=== PATIENT | female | born 1945 | race Caucasian/White ===

== ENCOUNTER → 2017-02-22 10:12 | Outpatient (CLI) | payer MEDICARE ==
[2017-02-22 10:57] LABS: BASOPHILS 0.2 % (0-2); HEMATOCRIT 43.2 % (36.0-48.0); HEMOGLOBIN 14.1 g/dL (12-16); LYMPHOCYTES 40.3 % (15-50); MCH 31.5 pg (26.0-34.0); MCHC 32.6 g/dL (31.0-37.0); MCV 96.6 fL (80.0-100.0); MEAN PLATELET VOLUME 10.1 fL (7.4-10.4); MONOCYTES 9.4 % (2-11); NEUTROPHILS 49.1 % (40-80); PLATELET COUNT 217 10x3/uL (130-400); RBC 4.47 10x6/uL (4.00-5.40); WBC 4.8 10x3/uL (4.8-10.8)
[2017-02-22 11:37] LABS: ALBUMIN 4.2 g/dL (3.4-5.0); ALKALINE PHOSPHATASE 57 U/L (46-116); ALT (SGPT) 20 U/L (10-68); BILIRUBIN - TOTAL 0.81 mg/dL (0.2-1.3); CALC OSMOLALITY 283 mosm/kg (275-300); CALCIUM 9.6 mg/dL (8.5-10.1); CARBON DIOXIDE 32.3 mmol/L (21.0-32.0); CHLORIDE - SERUM 104 mmol/L (98-107); CHOL - HDL RATIO 2.8 ratio (2.3-4.1); CHOLESTEROL, TOTAL 203 mg/dL (0-200); CREATININE - SERUM 0.8 mg/dL (0.6-1.3); GLUCOSE 96 mg/dL (74-106); HDL CHOLESTEROL 72 mg/dL (32-96); LDL CHOLESTEROL 120 mg/dL (0-100); LDL-HDL RATIO 1.7 ratio (1.5-3.5); POTASSIUM - SERUM 3.9 mmol/L (3.5-5.1); PROTEIN - SERUM 7.3 g/dL (6.4-8.2); SODIUM 143 mmol/L (136-145); THYROID STIMULATING HORMONE 2.03 uIU/mL (0.36-3.74); TRIGLYCERIDE 59 mg/dL (30-200); UREA NITROGEN 11 mg/dL (7-18); eGFR NON AFRICAN AMERICAN 75 mL/min (90-120)
== END | disposition home or self-care (01) ==
LOC: D.MRI 10:12
PROVIDERS: Family Medicine
DX: R41.82 Altered mental status, unspecified (principal); Z00.01 Encounter for general adult medical examination with abnormal findings; K58.9 Irritable bowel syndrome, unspecified; R53.83 Other fatigue; R79.9 Abnormal finding of blood chemistry, unspecified

== ENCOUNTER 2017-05-15 21:47 | Emergency (ER) | payer MEDICARE | END 2017-05-15 22:59 | disposition home or self-care (01) | LOC: D.ER 21:47 | DX: S01.81XA Laceration without foreign body of other part of head, initial encounter (principal); W01.0XXA Fall on same level from slipping, tripping and stumbling without subsequent striking against object, initial encounter; Y93.89 Activity, other specified; Y92.019 Unspecified place in single-family (private) house as the place of occurrence of the external cause; F03.90 Unspecified dementia, unspecified severity, without behavioral disturbance, psychotic disturbance, mood disturbance, and anxiety ==

== ENCOUNTER 2018-01-13 11:21 | Inpatient (IN) | payer MEDICARE ==
[~2018-01-13] VITALS: Ht 162.6 cm; Wt 59.5 kg
--- NOTE | ~2018-01-13 | DS ---
PATIENT:SHANNAN JENKINS :47 MEDICAL RECORD: [id number] DISCHARGE SUMMARY ADMISSION DATE: 01/13/18 DISCHARGE DATE: 01/20/18 DATE OF ADMISSION: 01/13/2018 DATE OF DISCHARGE: 01/20/2018 HISTORY OF PRESENT ILLNESS: A 72-year-old single white female brought to the Emergency Department by family. The patient had been showing worsening confusion over the last several days, she had been episodically combative. The patient evidently has had dementing symptoms for some time. She had been recently taken off of the Xanax, which she had been taking on a routine basis for some time. Symptoms worsened following this. There was some question about subacute delirium at the time of admission. For further details, please see previously dictated history. COURSE IN THE HOSPITAL: The patient was seen in consultation by Dr. Patton who noted the presence of osteoarthritis, hyperlipidemia and a recent urinary tract infection. MEDICATIONS: The patient was started on perphenazine 2 mg b.i.d. for control of anxiety. She was maintained on Aricept 10 mg at bedtime. She was started on routine doses of Ativan 0.5 mg t.i.d., which she tolerated very well. She was also maintained on Namenda 10 mg b.i.d. and Prozac 20 mg daily. Other medications that were continued included Lipitor, Mobic, Pepcid, Senokot. The patient did very well over the course of the hospitalization, her anxiety improved markedly. She showed no further evidence of combativeness. The daughter was kept informed by case management the patient's progress. Due to financial concerns, longterm placement is not a viable option at the moment, but maybe in the future and the daughter will have the patient return home with her until arrangements can be made. FINAL DIAGNOSES: AXIS I: Alzheimer dementia with behavioral disturbance. AXIS II: No diagnosis. AXIS III: Osteoarthritis by history, hyperlipidemia, recent urinary tract infection - resolving. AXIS IV: Moderate. AXIS V: 45. PLAN: 1. Continue all current medications. 2. Follow up with primary care physician. TRANSINT:[id number] Voice Confirmation ID: [id number] DOCUMENT ID: [id number] DISCHARGE SUMMARY REPORT [id number] CLAUDETTESHANNAN WAGNER Daniela AMAYA III, CHAD Quiñonez MD at 1010 CC: [id number] DICTATION DATE: 01/20/18 1101 CLAIMS ASSISTANT: 01/21/18 0524 DIS IN 01/20/18 [facility] [address] [id number]
--- NOTE | ~2018-01-13 | PN ---
PATIENT:SHANNAN JENKINS MEDICAL RECORD: [id number] LOCATION:MAXIMILIANO Harkins112 ADMISSION DATE: 01/13/18 PROGRESS NOTE DATE OF SERVICE: 01/18/2018 SUBJECTIVE: No new complaint. OBJECTIVE: The patient has only minor somatic complaints for the most part. Mood is euthymic. Affect is bland. Speech is slow in production and rate and somewhat terse. Content of thought is negative for overt psychosis. The patient is sleeping well. Sensorium testing reveals the patient is oriented primarily to person with global memory impairment. ASSESSMENT: No change in diagnosis. PLAN: 1. Maintain current medication. 2. Continue supportive therapy. TRANSINT:[id number] Voice Confirmation ID: [id number] DOCUMENT ID: [id number] CHAD AMAYA III, MD at 1026 CC: [id number] DICTATION DATE: 01/18/18 1109 LEGAL BILLING COORDINATOR: 01/18/18 1207 ADM IN [address] [id number] [place] [address]
--- NOTE | ~2018-01-13 | PSY ---
PATIENT NAME:SHANNAN JENKINS MEDICAL RECORD: [id number] : 47 LOCATION:MAXIMILIANO Ashraf6 ADMISSION DATE: 01/13/18 ACCOUNT: [id number] PSYCHIATRIC EVALUATION DATE OF EVALUATION: 01/14/18 IDENTIFYING DATA: This is the first fdc admission for this 72-year-old single white female. This patient was brought to the Emergency Department from home by her daughter. The patient had been showing very severe confusion, which had markedly worsened in the last few days. She had also been combative and could not be redirected. PERTINENT HISTORY: The patient was seen by a physician several days ago and alprazolam, which the patient evidently had been taking routinely for some time, was discontinued. Seroquel was substituted, but the patient has shown worsened restlessness, insomnia, and anxiety since that time. At the present time, she is exhibiting possible acute delirium. The patient also has an acute urinary tract infection. Because of at risk behavior, the patient is now admitted. PAST MEDICAL HISTORY: Significant for the above-mentioned urinary tract infection as well as hyperlipidemia and osteoarthritis. MEDICATIONS AT THE TIME OF ADMISSION: Included Aricept 10 mg h.s. and Namenda 10 mg b.i.d. The patient also had been taking Senokot, Pepcid, Mobic, Lipitor, Prozac, and Levaquin. FAMILY HISTORY: Noncontributory from a psychiatric standpoint. 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 She currently is not . There are no known substance abuse issues. She does have family involved in her care. ALLERGIES: Include SULFONAMIDE ANTIBIOTICS. MENTAL STATUS: On interview, the patient is pleasant, but clearly confused. She is oriented to person and the fact that she is in a hospital, she is not correctly oriented as to time. Mood is slightly anxious. Affect is somewhat constricted. Speech tends to be terse. Content of thought is focused on somatic concerns. As mentioned, she is oriented to person. Remote recall seems impaired. Intermediate recall is significantly impaired, for example she cannot remember that she was allergic to SULFONAMIDE ANTIBIOTICS. She had great difficulty recalling the name of her physician. Likewise, she had difficulty recalling her street address. Concentration is very poor. Insight is limited. However, the patient does admit that she is having trouble with her memory. ASSESSMENT: AXIS I: Alzheimer dementia with behavioral disturbance, secondary delirium. AXIS II: No diagnosis. AXIS III: Osteoarthritis by history, urinary tract infection, and hyperlipidemia. AXIS IV: Severe. AXIS V: 36. PLAN: 1. The patient is admitted for further medical and psychiatric workup. 2. Diet and activities as tolerated. 3. Daily supportive therapy. TRANSINT:[id number] Voice Confirmation ID: [id number] DOCUMENT ID: [id number] CHAD AMAYA III, MD at 0535 CC: [id number] DICTATION DATE: 01/14/18 1111 KEYBOARD INSTRUMENT REPAIRER: 01/14/18 1150 ADM IN [facility] [address] [id number]
--- NOTE | ~2018-01-13 | PN ---
PATIENT:SHANNAN JENKINS MEDICAL RECORD: [id number] LOCATION:MAXIMILIANO Harkins112 ADMISSION DATE: 01/13/18 PROGRESS NOTE DATE OF SERVICE: 01/17/2018 SUBJECTIVE: No new complaint. OBJECTIVE: The patient has been doing well. She has been pleasant and cooperative for the most part tolerating medication. On exam, mood is euthymic. Affect is somewhat vacant and constricted. Speech is terse. Content of thought is negative for overt psychosis. Sensorium unchanged. ASSESSMENT: No change in diagnosis. PLAN: 1. Continue current medication. 2. Continue supportive therapy. TRANSINT:[id number] Voice Confirmation ID: [id number] DOCUMENT ID: [id number] CHAD AMAYA III, MD at 0828 CC: [id number] DICTATION DATE: 01/17/18 1204 CLINICAL LABORATORY ASSISTANT: 01/17/18 1236 ADM IN [address] [id number] [place] [id number]
--- NOTE | ~2018-01-13 | PN ---
PATIENT:SHANNAN JENKINS MEDICAL RECORD: [id number] LOCATION:MAXIMILIANO Harkins112 ADMISSION DATE: 01/13/18 PROGRESS NOTE DATE OF SERVICE: 01/19/2018 SUBJECTIVE: No new complaint noted. OBJECTIVE: The patient has continued to do well. Her family has encountered some financial difficulties in terms of trying to get her into a care home setting. The patient will temporarily return home with her daughter until these arrangements can be finalized. On exam, the patient's mood is very pleasant. Affect is bland. Speech is rather terse. Content of thought is negative for suicidal ideation. Sensorium shows no change. ASSESSMENT: No change in diagnosis. PLAN: 1. Continue all current medications. 2. Anticipate discharge tomorrow. TRANSINT:[id number] Voice Confirmation ID: [id number] DOCUMENT ID: [id number] CHAD AMAYA III, MD at 1015 CC: [id number] DICTATION DATE: 01/19/18 1110 YOUTH PROGRAM DIRECTOR: 01/19/18 1423 ADM IN [id number] [place] [address]
[2018-01-13 12:28] LABS: APPEARANCE CLEAR (CLEAR); BILIRUBIN NEGATIVE (NEGATIVE); COLOR YELLOW (YELLOW); GLUCOSE NEGATIVE (NEGATIVE); KETONE NEGATIVE (NEGATIVE); NITRITE NEGATIVE (NEGATIVE); PROTEIN NEGATIVE (NEGATIVE); UROBILINOGEN NORMAL (NORMAL)
[2018-01-13 12:29] LABS: BACTERIA FEW /hpf (NONE SEEN); EPITHELIAL CELLS 0-5 /hpf (0-5); RED CELLS - URINE 0-5 /hpf (0-5)
[2018-01-13 12:30] LABS: MUCUS <1+ /lpf (NONE SEEN)
[2018-01-13 13:23] LABS: BASOPHILS 0.2 % (0-2); EOSINOPHILS 1.2 % (0-7); HEMATOCRIT 38.4 % (36.0-48.0); HEMOGLOBIN 12.5 g/dL (12-16); IMMATURE GRANULOCYTES 0.3 % (0-5); LYMPHOCYTES 32.2 % (15-50); MCH 31.3 pg (26.0-34.0); MCHC 32.6 g/dL (31.0-37.0); MCV 96.2 fL (80.0-100.0); MEAN PLATELET VOLUME 10.6 fL (7.4-10.4); MONOCYTES 8.6 % (2-11); NEUTROPHILS 57.5 % (40-80); PLATELET COUNT 210 10x3/uL (130-400); RBC 3.99 10x6/uL (4.00-5.40); RDW 12.6 % (11.5-14.5); WBC 5.8 10x3/uL (4.8-10.8)
[2018-01-13 13:39] LABS: APTT 27.9 SECONDS (22.8-39.4); INR 0.99 (0.85-1.17); PROTIME 12.7 SECONDS (11.6-15.0)
[2018-01-13 13:41] LABS: D-DIMER-QUANTITATIVE 0.62 ug/mLFEU (0.20-0.54)
[2018-01-13 13:49] LABS: ALBUMIN 3.6 g/dL (3.4-5.0); ALKALINE PHOSPHATASE 56 U/L (46-116); ALT (SGPT) 18 U/L (10-68); BILIRUBIN - TOTAL 1.31 mg/dL (0.2-1.3); CALC OSMOLALITY 280 mosm/kg (275-300); CALCIUM 9.5 mg/dL (8.5-10.1); CARBON DIOXIDE 28.7 mmol/L (21.0-32.0); CHLORIDE - SERUM 105 mmol/L (98-107); CREATININE - SERUM 0.6 mg/dL (0.6-1.3); GLUCOSE 92 mg/dL (74-106); POTASSIUM - SERUM 4.2 mmol/L (3.5-5.1); SODIUM 141 mmol/L (136-145); UREA NITROGEN 12 mg/dL (7-18); eGFR NON AFRICAN AMERICAN > 90 mL/min (90-120)
[2018-01-13 14:03] LABS: CKMB 0.5 U/L (0.0-3.6); CREATINE KINASE 60 UL (21-215)
[2018-01-13 14:05] LABS: TROPONIN-I < 0.017 ng/mL (0.000-0.060)
[2018-01-13] MEDS ORDERED: MOBIC7.5 MG PO (18:00)
[2018-01-13] MEDS ORDERED: PROZAC20 MG PO (18:01)
[2018-01-13] MEDS ORDERED: SEROQUEL25 MG PO ×2 (18:01)
[2018-01-13] MEDS ORDERED: NAMENDA10 MG PO (18:03)
[2018-01-13] MEDS ORDERED: ARICEPT10 MG PO (18:03)
[2018-01-13 18:05] VITALS: BP 117/76; BMI 22.3
[2018-01-13 20:17] VITALS: BP 102/73
[2018-01-13 20:40] LABS: CHOL - HDL RATIO 42.4 ratio (2.3-4.1); LDL-HDL RATIO 39.4 ratio (1.5-3.5); THYROID STIMULATING HORMONE 1.79 uIU/mL (0.36-3.74)
[2018-01-14 08:12] VITALS: BP 120/56
[2018-01-14 15:13] VITALS: BMI 22.3
[2018-01-14 20:35] VITALS: BP 128/55
[2018-01-15 07:25] LABS: FOLATE (FOLIC ACID) - SERUM >20.0 ng/mL (>3.0)
[2018-01-15 09:35] VITALS: BP 102/64
[2018-01-15 20:50] VITALS: BP 152/73
[2018-01-16 08:49] VITALS: BP 112/58
[2018-01-16 20:15] VITALS: BP 141/60
[2018-01-17 09:34] VITALS: BP 120/60
[2018-01-17 12:07] VITALS: Ht 162.6 cm; Wt 59.5 kg
[2018-01-17 20:32] VITALS: BP 120/46
[2018-01-18 08:26] VITALS: BP 142/87
[2018-01-18 20:21] VITALS: BP 135/70
[2018-01-19 09:33] VITALS: BP 132/76
[2018-01-19] MEDS ORDERED: LEVAQUIN500 MG PO (11:21)
[2018-01-19] MEDS ORDERED: ATIVAN0.5 MG PO (11:22)
[2018-01-19] MEDS ORDERED: PERPHENAZINE2 MG PO (11:22)
[2018-01-19] MEDS ORDERED: LIPITOR10 MG PO (11:22)
[2018-01-19] MEDS ORDERED: PEPCID20 MG PO (11:23)
[2018-01-19 19:21] VITALS: BP 124/68
[2018-01-20 07:00] VITALS: BP 125/55
== END 2018-01-20 11:25 | disposition home or self-care (01) | DRG 57 ==
LOC: D.ER 11:21 → D.PSYCH 17:21
PROVIDERS: Family Medicine; Psychiatry & Neurology Psychiatry
DX: G30.9 Alzheimer's disease, unspecified (principal); F02.81 Dementia in other diseases classified elsewhere, unspecified severity, with behavioral disturbance; N39.0 Urinary tract infection, site not specified; M19.90 Unspecified osteoarthritis, unspecified site; E78.5 Hyperlipidemia, unspecified; M25.562 Pain in left knee; M25.561 Pain in right knee; F41.8 Other specified anxiety disorders

== ENCOUNTER 2018-03-07 01:53 | Emergency (ER) | payer MEDICARE ==
[~2018-03-07] VITALS: Ht 162.6 cm; Wt 77.1 kg
[~2018-03-07 01:53] MED LIST: ARICEPT10 MG PO; ATIVAN0.5 MG PO; LEVAQUIN500 MG PO; LIPITOR10 MG PO; MOBIC7.5 MG PO; NAMENDA10 MG PO; PEPCID20 MG PO; PERPHENAZINE2 MG PO; PROZAC20 MG PO; SEROQUEL25 MG PO
[2018-03-07 01:57] VITALS: Ht 162.6 cm; Wt 77.1 kg
[2018-03-07] MEDS ORDERED: AMOXICILLIN875 MG (01:59)
[2018-03-07 03:34] VITALS: BP 135/69
== END 2018-03-08 03:35 | disposition home or self-care (01) ==
LOC: D.ER 01:53
DX: S09.90XA Unspecified injury of head, initial encounter (principal); W19.XXXA Unspecified fall, initial encounter; Y93.89 Activity, other specified; Y92.019 Unspecified place in single-family (private) house as the place of occurrence of the external cause; F03.90 Unspecified dementia, unspecified severity, without behavioral disturbance, psychotic disturbance, mood disturbance, and anxiety

== ENCOUNTER 2018-05-11 22:00 | Inpatient (IN) | payer MEDICARE ==
[~2018-05-11] VITALS: Ht 167.6 cm; Wt 62.6 kg
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
--- NOTE | ~2018-05-11 | PN ---
PATIENT:SHANNAN JENKINS MEDICAL RECORD: [id number] LOCATION:BISHOPSwapnil Harkins112 ADMISSION DATE: 05/11/18 PROGRESS NOTE DATE OF SERVICE: 05/28/2018 SUBJECTIVE: The patient's case was discussed with staff. She has no new complaint. OBJECTIVE: The patient denies any intent to harm herself or others. She is quite impaired. She was agitated yesterday evening and did receive Ativan for the agitation and it was helpful. ASSESSMENT: No change in diagnoses. PLAN: Current medicines have been reviewed and will be maintained. Her long-term prognosis is guarded. TRANSINT:[id number] Voice Confirmation ID: [id number] DOCUMENT ID: [id number] СЕРГЕЙ GARCIA MD at 1210 CC: [id number] DICTATION DATE: 05/28/18 1228 CHICKEN AND FISH CLEANER: 05/28/18 1235 ADM IN [id number] [place] [id number]
--- NOTE | ~2018-05-11 | PN ---
PATIENT:SHANNAN JENKINS MEDICAL RECORD: [id number] LOCATION:MAXIMILIANO Shhaana112 ADMISSION DATE: 05/11/18 PROGRESS NOTE DATE OF SERVICE: 05/20/2018 SUBJECTIVE: The patient's case was discussed with staff. She has no new complaint. OBJECTIVE: The patient is eating and sleeping reasonably well. Unfortunately, she is still quite confused. She has very limited insight about her situation and a depressed mood. She certainly is not suicidal. ASSESSMENT: No change in diagnoses. PLAN: The patient will be maintained on current medicines with the exception of the Effexor, which I am going to increase slightly. Her long-term prognosis is guarded. Supportive and educational interventions were made. TRANSINT:[id number] Voice Confirmation ID: [id number] DOCUMENT ID: [id number] СЕРГЕЙ GARCIA MD at 1243 CC: [id number] DICTATION DATE: 05/20/18 1236 STATION INSTALLATION SUPERVISOR: 05/20/18 1243 ADM IN [id number] [place] [address]
--- NOTE | ~2018-05-11 | PN ---
PATIENT:SHANNAN JENKINS MEDICAL RECORD: [id number] LOCATION:BISHOPSwapnil Harkins112 ADMISSION DATE: 05/11/18 PROGRESS NOTE DATE OF SERVICE: 06/07/2018 SUBJECTIVE: The patient's case was discussed with staff. She has no new complaint. OBJECTIVE: The patient denies intent to harm herself or others. She is tolerating her medicines well. ASSESSMENT: No change in diagnoses. PLAN: The patient will be transitioned out of the hospital tomorrow. Her long-term prognosis is guarded. Supportive and educational interventions were made. TRANSINT:[id number] Voice Confirmation ID: [id number] DOCUMENT ID: [id number] СЕРГЕЙ GARCIA MD at 1449 CC: [id number] DICTATION DATE: 06/07/18 1448 ASSEMBLER FOR PULLER OVER HAND: 06/07/18 1502 ADM IN [id number] [place] [address]
--- NOTE | ~2018-05-11 | PN ---
PATIENT:SHANNAN JENKINS MEDICAL RECORD: [id number] LOCATION:MAXIMILIANO Shahana112 ADMISSION DATE: 05/11/18 PROGRESS NOTE DATE OF SERVICE: 05/25/2018 SUBJECTIVE: The patient's case was discussed with staff. She has no new complaint. OBJECTIVE: The patient denies intent to harm herself or others. She generally tolerates her medicines well. She did require p.r.n. medication last night because of agitation. She is very poorly organized. ASSESSMENT: No change in diagnoses. PLAN: Supportive and educational interventions were made. Long-term prognosis is guarded. TRANSINT:[id number] Voice Confirmation ID: [id number] DOCUMENT ID: [id number] СЕРГЕЙ GARCIA MD at 1336 CC: [id number] DICTATION DATE: 05/25/18 1321 PRODUCTION COOK: 05/25/18 1332 ADM IN [id number] [place] [id number]
--- NOTE | ~2018-05-11 | PN ---
PATIENT:SHANNAN JENKINS MEDICAL RECORD: [id number] LOCATION:MAXIMILIANO Harkins112 ADMISSION DATE: 05/11/18 PROGRESS NOTE DATE OF SERVICE: 05/18/2018 SUBJECTIVE: The patient's case was discussed with staff. She has no new complaint. OBJECTIVE: The patient denies intent to harm herself or others. She generally tolerates her medicines well. Eye contact is fair. ASSESSMENT: No change in diagnoses. PLAN: Brief supportive and educational interventions were made. The patient did require some p.r.n. medication last night. I am hopeful that this was an isolated event. She is receiving Effexor for its antidepressant properties. TRANSINT:[id number] Voice Confirmation ID: [id number] DOCUMENT ID: [id number] СЕРГЕЙ GARCIA MD at 1234 CC: [id number] DICTATION DATE: 05/18/18 1355 PROFESSOR OF COMMUNICATION: 05/18/18 1410 ADM IN [id number] [place] [address]
--- NOTE | ~2018-05-11 | PN ---
PATIENT:SHANNAN JENKINS MEDICAL RECORD: [id number] LOCATION:MAXIMILIANO Harkins112 ADMISSION DATE: 05/11/18 PROGRESS NOTE DATE OF SERVICE: 05/17/2018 SUBJECTIVE: The patient's case was discussed with staff. She has no new complaint. OBJECTIVE: The patient denies intent to harm herself or others. She is sleeping well and eating reasonably well. She is quite confused, but has not been behaviorally out of control. Part of that is the skill with which the staff is managing her, but also she clearly is better. ASSESSMENT: No change in diagnoses. PLAN: The patient will have her Effexor increased to 37.5 mg twice daily. Her long-term prognosis is guarded. She has a depressed mood, but certainly no thoughts of harming herself. TRANSINT:[id number] Voice Confirmation ID: [id number] DOCUMENT ID: [id number] СЕРГЕЙ GARCIA MD at 1339 CC: [id number] DICTATION DATE: 05/17/18 1412 BULK FLUIDS HANDLER: 05/17/18 1423 ADM IN [facility] [address] [place] [address]
--- NOTE | ~2018-05-11 | PN ---
PATIENT:SHANNAN JENKINS MEDICAL RECORD: [id number] LOCATION:BISHOPSwapnil Harkins112 ADMISSION DATE: 05/11/18 PROGRESS NOTE DATE OF SERVICE: 06/08/2018 SUBJECTIVE: The patient's case was discussed with staff. She has no new complaint. OBJECTIVE: The patient denies intent to harm herself or others. She is in good behavioral control, but severely impaired cognitively. She is eating and sleeping well. She is taking her medicines and tolerating them well. ASSESSMENT: No change in diagnoses. PLAN: The patient will be transitioned out of the hospital this afternoon. Her long-term prognosis is guarded. I would expect that she will have occasional behavioral outbursts, but the in point of her treatment is not that she never had behavioral outbursts, but that she had fewer and less severe ones. Followup will be with the primary care fdc physician. TRANSINT:[id number] Voice Confirmation ID: [id number] DOCUMENT ID: [id number] СЕРГЕЙ GARCIA MD at 1407 CC: [id number] DICTATION DATE: 06/08/18 1457 ALIGNING CHECKER: 06/08/18 1527 DIS IN 06/08/18 [facility] [address] [place] [address]
--- NOTE | ~2018-05-11 | PN ---
PATIENT:SHANNAN JENKINS MEDICAL RECORD: [id number] LOCATION:BISHOPSwapnil Harkins112 ADMISSION DATE: 05/11/18 PROGRESS NOTE DATE OF SERVICE: 06/04/2018 SUBJECTIVE: The patient's case was discussed with staff. She has no new complaint. OBJECTIVE: The patient is in good behavioral control with limited insight about her condition. She tolerates her medicines well. ASSESSMENT: No change in diagnoses. PLAN: Supportive and educational interventions were made. The patient's long-term prognosis is guarded. TRANSINT:[id number] Voice Confirmation ID: [id number] DOCUMENT ID: [id number] СЕРГЕЙ GARCIA MD at 1002 CC: [id number] DICTATION DATE: 06/04/18 1106 SOCIAL SECURITY BENEFITS INTERVIEWER: 06/04/18 1141 ADM IN [address] [place] [address]
--- NOTE | ~2018-05-11 | PN ---
PATIENT:SHANNAN JENKINS MEDICAL RECORD: [id number] LOCATION:BISHOPSwapnil Harkins112 ADMISSION DATE: 05/11/18 PROGRESS NOTE DATE OF SERVICE: 05/22/2018 SUBJECTIVE: The patient's case was discussed with staff. She has no new complaint. OBJECTIVE: The patient received p.r.n. medication today because of some anxiety, but she was not aggressive. She is still quite confused. She is sleeping and eating marginally well. ASSESSMENT: No change in diagnoses. PLAN: Current medicines and therapies will be maintained. Her long-term prognosis is guarded. TRANSINT:[id number] Voice Confirmation ID: [id number] DOCUMENT ID: [id number] СЕРГЕЙ GARCIA MD at 1326 CC: [id number] DICTATION DATE: 05/22/18 1243 MANDARIN TUTOR: 05/22/18 1246 ADM IN [id number] [place] [id number]
--- NOTE | ~2018-05-11 | PN ---
PATIENT:SHANNAN JENKINS MEDICAL RECORD: [id number] LOCATION:MAXIMILIANO Shahana112 ADMISSION DATE: 05/11/18 PROGRESS NOTE DATE OF SERVICE: 05/24/2018 SUBJECTIVE: The patient's case was discussed with staff. She has no new complaint. OBJECTIVE: The patient denies intent to harm herself or others. She generally tolerates her medicines well. She has been agitated at times, but it is primarily over personal care or having to get out of bed. ASSESSMENT: No change in diagnoses. PLAN: Supportive and educational interventions were made. Long-term prognosis is guarded. Her medications have been reviewed. TRANSINT:[id number] Voice Confirmation ID: [id number] DOCUMENT ID: [id number] СЕРГЕЙ GARCIA MD at 1234 CC: [id number] DICTATION DATE: 05/24/18 1857 LINE THERAPIST: 05/24/18 193 ADM IN [address] [place] [address]
--- NOTE | ~2018-05-11 | PN ---
PATIENT:SHANNAN JENKINS MEDICAL RECORD: [id number] LOCATION:BISHOPSwapnil Harkins112 ADMISSION DATE: 05/11/18 PROGRESS NOTE DATE OF SERVICE: 05/31/2018 SUBJECTIVE: The patient's case was discussed with staff. She has no new complaint. OBJECTIVE: The patient denies intent to harm herself or others. She does tolerate her medicines well. Eye contact is fair. ASSESSMENT: No change in diagnoses. PLAN: Brief supportive and educational interventions were made. Long-term prognosis is guarded. TRANSINT:[id number] Voice Confirmation ID: [id number] DOCUMENT ID: [id number] СЕРГЕЙ GARCIA MD at 1628 CC: [id number] DICTATION DATE: 05/31/18 1454 GREENHOUSE SUPERINTENDENT: 05/31/18 1515 ADM IN [id number] [place] [address]
--- NOTE | ~2018-05-11 | PN ---
PATIENT:SHANNAN JENKINS MEDICAL RECORD: [id number] LOCATION:MAXIMILIANO Shahana112 ADMISSION DATE: 05/11/18 PROGRESS NOTE DATE OF SERVICE: 05/27/2018 SUBJECTIVE: The patient's case was discussed with staff. She has no new complaint. OBJECTIVE: The patient is tolerating her medicines well and is sleeping and eating well. She is still severely, even profoundly confused. ASSESSMENT: No change in diagnoses. PLAN: Supportive and educational interventions were made. The patient's long-term prognosis is guarded. TRANSINT:[id number] Voice Confirmation ID: [id number] DOCUMENT ID: [id number] СЕРГЕЙ GARCIA MD at 1213 CC: [id number] DICTATION DATE: 05/27/18 1451 ASSOCIATE PROFESSOR OF SURGERY: 05/27/18 1521 ADM IN [address] [id number] [place] [address]
--- NOTE | ~2018-05-11 | PN ---
PATIENT:SHANNAN JENKINS MEDICAL RECORD: [id number] LOCATION:MAXIMILIANO Harkins112 ADMISSION DATE: 05/11/18 PROGRESS NOTE DATE OF SERVICE: 05/29/2018 SUBJECTIVE: The patient's case was discussed with staff. She has no new complaint. OBJECTIVE: The patient is eating well and sleeping marginally well. She has been very confused and has required p.r.n. medications. ASSESSMENT: No change in diagnoses. PLAN: The patient yesterday was started on a scheduled dose of Klonopin. I do not think it has had an opportunity to become effective. I have reviewed her medications and we will monitor her for clinical changes. TRANSINT:[id number] Voice Confirmation ID: [id number] DOCUMENT ID: [id number] СЕРГЕЙ GARCIA MD at 1408 CC: [id number] DICTATION DATE: 05/29/18 1212 BUSINESS OPERATIONS SPECIALIST: 05/29/18 1223 ADM IN [place] [id number] [place] [address]
--- NOTE | ~2018-05-11 | PN ---
PATIENT:SHANNAN JENKINS MEDICAL RECORD: [id number] LOCATION:MAXIMILIANO Harkins112 ADMISSION DATE: 05/11/18 PROGRESS NOTE DATE OF SERVICE: 05/30/2018 SUBJECTIVE: The patient's case was discussed with staff. She has no new complaint. OBJECTIVE: The patient is a little better today. She had quite a bit of trouble over the weekend with agitated and disruptive behaviors. I think the medication changes that were made on Wednesday may be showing some benefit. ASSESSMENT: No change in diagnoses. PLAN: Current medicines have been reviewed and will be maintained. Her long-term prognosis is guarded. TRANSINT:[id number] Voice Confirmation ID: [id number] DOCUMENT ID: [id number] СЕРГЕЙ GARCIA MD at 1132 CC: [id number] DICTATION DATE: 05/30/18 1415 IT TECHNICAL SUPPORT SPECIALIST: 05/30/18 1420 ADM IN [id number] [place] [address]
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
--- NOTE | ~2018-05-11 | PN ---
PATIENT:SHANNAN JENKINS MEDICAL RECORD: [id number] LOCATION:MAXIMILIANO Harkins112 ADMISSION DATE: 05/11/18 PROGRESS NOTE DATE OF SERVICE: 06/01/2018 SUBJECTIVE: The patient's case was discussed with staff. She has no new complaint. OBJECTIVE: The patient is eating and sleeping well. She is very confused, but has not been aggressive or disruptive in any serious way today. She engages in some banter with a lot of the other residents that I know she thinks is playful, but it is disturbing. She is in the way a child would be standing behind a patient, mocking mannerisms and speech, and then laughing. I know that it is not malicious. Shannan is too impaired to be malicious, but it certainly is something that I and others have redirected and is likely to cause some problems if she does not stop this. At the same time, there is no medication for that obviously and I think it is just part of her personality, but redirecting her is about all that can be done since she cannot really remember things from moment to moment. ASSESSMENT: No change in diagnoses. PLAN: Current medicines have been reviewed. Long-term prognosis is guarded. TRANSINT:[id number] Voice Confirmation ID: [id number] DOCUMENT ID: [id number] СЕРГЕЙ GARCIA MD at 1305 CC: [id number] DICTATION DATE: 06/01/18 1639 MINE WIRER: 06/01/18 1707 ADM IN [place] [id number] [place] [address]
--- NOTE | ~2018-05-11 | PN ---
PATIENT:SHANNAN JENKINS MEDICAL RECORD: [id number] LOCATION:MAXIMILIANO Harkins112 ADMISSION DATE: 05/11/18 PROGRESS NOTE DATE OF SERVICE: 06/05/2018 SUBJECTIVE: The patient's case was discussed with staff. She has no new complaint. OBJECTIVE: The patient is severely impaired cognitively, but became very agitated last night and required 2 doses of Haldol and Ativan to calm her. ASSESSMENT: No change in diagnoses. PLAN: The patient was thought to be about ready for discharge, but based on the behaviors that occurred last night, I am going to delay it for a few more days and we will more correctly change her dose of Klonopin to a higher scheduled dose. This may have just been an isolated incident that led to this agitation, but it was so severe that it would have resulted in her being readmitted to the hospital last night had she been discharged. TRANSINT:[id number] Voice Confirmation ID: [id number] DOCUMENT ID: [id number] СЕРГЕЙ GARCIA MD at 1319 CC: [id number] DICTATION DATE: 06/05/18 1008 SENIOR ARCHITECT: 06/05/18 1144 ADM IN [facility] [address] [place] [address]
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
--- NOTE | ~2018-05-11 | PN ---
PATIENT:SHANNAN JENKINS MEDICAL RECORD: [id number] LOCATION:MAXIMILIANO Harkins112 ADMISSION DATE: 05/11/18 PROGRESS NOTE DATE OF SERVICE: 06/06/2018 SUBJECTIVE: The patient's case was discussed with staff. She has no new complaint. OBJECTIVE: The patient is in good behavioral control. She has limited insight about her condition. She is severely impaired cognitively. She had quite a bit of problems over the weekend with some agitated behavior, but today she seems better. ASSESSMENT: No change in diagnoses. PLAN: Current medicines will be maintained. Her long-term prognosis is guarded. I anticipate she can be transitioned out of the hospital soon. TRANSINT:[id number] Voice Confirmation ID: [id number] DOCUMENT ID: [id number] СЕРГЕЙ GARCIA MD at 1440 CC: [id number] DICTATION DATE: 06/06/18 1338 EYELET MAKER: 06/06/18 1342 ADM IN [place] [address] [place] [address]
--- NOTE | ~2018-05-11 | PN ---
PATIENT:SHANNAN JENKINS MEDICAL RECORD: [id number] LOCATION:MAXIMILIANO Harkins112 ADMISSION DATE: 05/11/18 PROGRESS NOTE DATE OF SERVICE: 05/14/2018 SUBJECTIVE: The patient's case was discussed with staff. She has no new complaint. OBJECTIVE: The patient denies intent to harm herself or others. She generally tolerates her medicines well. She was significantly agitated this morning and did require a p.r.n. medication because of her level of agitation. She is sleeping and eating reasonably well. I do plan to start her on a low dose of an antidepressant. Her long-term prognosis is guarded. TRANSINT:[id number] Voice Confirmation ID: [id number] DOCUMENT ID: [id number] СЕРГЕЙ GARCIA MD at 1045 CC: [id number] DICTATION DATE: 05/14/18 1232 BAND TOP MAKER: 05/14/18 1251 ADM IN [place] [address] [place] [address]
--- NOTE | ~2018-05-11 | PN ---
PATIENT:SHANNAN JENKINS MEDICAL RECORD: [id number] LOCATION:BISHOPSwapnil Harkins112 ADMISSION DATE: 05/11/18 PROGRESS NOTE DATE OF SERVICE: 05/13/2018 SUBJECTIVE: The patient's case was discussed with staff. She has no new complaint. OBJECTIVE: The patient is sleeping reasonably well. She is only oriented to person. She has severe cognitive impairment. ASSESSMENT: No change in diagnoses. PLAN: The patient will be given Aricept at a dose of 5 mg at bedtime. Her long-term progress is guarded. TRANSINT:[id number] Voice Confirmation ID: [id number] DOCUMENT ID: [id number] СЕРГЕЙ GARCIA MD at 1223 CC: [id number] DICTATION DATE: 05/13/18 1336 WEB ANALYTICS SPECIALIST: 05/13/18 1341 ADM IN [place] [id number] [place] [address]
--- NOTE | ~2018-05-11 | PN ---
PATIENT:SHANNAN JENKINS MEDICAL RECORD: [id number] LOCATION:MAXIMILIANO HutchisonWilber112 ADMISSION DATE: 05/11/18 PROGRESS NOTE DATE OF SERVICE: 05/16/2018 SUBJECTIVE: The patient's case was discussed with staff. She has no new complaint. OBJECTIVE: The patient is sleeping about 11 hours at night. She was fairly confused and agitated yesterday and actually did require some p.r.n. medication. ASSESSMENT: No change in diagnoses. PLAN: The patient is only taking 25 mg of Seroquel at bedtime. I am going to discontinue this since she is sleeping excessively and still having behavior problems and I will start Trilafon at a dose of 2 mg twice daily. Her long-term prognosis is guarded. TRANSINT:[id number] Voice Confirmation ID: [id number] DOCUMENT ID: [id number] СЕРГЕЙ GARCIA MD at 1406 CC: [id number] DICTATION DATE: 05/16/18 1112 COMMERCIAL LITIGATION ATTORNEY: 05/16/18 1140 ADM IN [place] [address] [place] [address]
--- NOTE | ~2018-05-11 | PN ---
PATIENT:SHANNAN JENKINS MEDICAL RECORD: [id number] LOCATION:MAXIMILIANO Harkins112 ADMISSION DATE: 05/11/18 PROGRESS NOTE DATE OF SERVICE: 05/19/2018 SUBJECTIVE: The patient's case was discussed with staff. She has no new complaint. OBJECTIVE: The patient is in good behavioral control with limited insight about her condition. She tolerates her medicines well. ASSESSMENT: No change in diagnoses. PLAN: Brief supportive and educational interventions were made. Long-term prognosis is guarded. I am going to increase the dose of her Aricept slightly. TRANSINT:[id number] Voice Confirmation ID: [id number] DOCUMENT ID: [id number] СЕРГЕЙ GARCIA MD at 1222 CC: [id number] DICTATION DATE: 05/19/18 1247 CLINICAL DERMATOLOGIST: 05/19/18 1252 ADM IN [place] [address] [place] [address]
--- NOTE | ~2018-05-11 | PN ---
PATIENT:SHANNAN JENKINS MEDICAL RECORD: [id number] LOCATION:[facility] ALEJANDRA Harkins112 ADMISSION DATE: 05/11/18 PROGRESS NOTE DATE OF SERVICE: 05/26/2018 SUBJECTIVE: The patient's case was discussed with staff. She has no new complaint. OBJECTIVE: The patient has been very agitated, disruptive and disorganized. She has required multiple p.r.n. doses of Ativan. ASSESSMENT: No change in diagnoses. PLAN: The patient is worse for whatever reason. I am going to discontinue the Trilafon and we will start her on Geodon on a scheduled basis. TRANSINT:[id number] Voice Confirmation ID: [id number] DOCUMENT ID: [id number] СЕРГЕЙ GARCIA MD at 1435 CC: [id number] DICTATION DATE: 05/26/18 1349 CONDOMINIUM ASSOCIATION MANAGER: 05/26/18 1352 ADM IN [place] [address] [place] [address]
--- NOTE | ~2018-05-11 | PN ---
PATIENT:SHANNAN JENKINS MEDICAL RECORD: [id number] LOCATION:BISHOPSwapnil Harkins112 ADMISSION DATE: 05/11/18 PROGRESS NOTE DATE OF SERVICE: 06/02/2018 SUBJECTIVE: The patient's case was discussed with staff. She has no new complaint. OBJECTIVE: The patient denies intent to harm herself or others. She is certainly calmer today. She has not been disruptive. ASSESSMENT: No change in diagnoses. PLAN: Current medicines and therapies have been reviewed and will be maintained. Her long-term prognosis is guarded. Brief supportive and educational interventions were made. TRANSINT:[id number] Voice Confirmation ID: [id number] DOCUMENT ID: [id number] СЕРГЕЙ GARCIA MD at 1324 CC: [id number] DICTATION DATE: 06/02/18 1354 DIRECTOR EXECUTIVE COMMUNICATIONS: 06/02/18 1357 ADM IN [place] [address] [place] [address]
--- NOTE | ~2018-05-11 | PN ---
PATIENT:SHANNAN JENKINS MEDICAL RECORD: [id number] LOCATION:MAXIMILIANO Harkins112 ADMISSION DATE: 05/11/18 PROGRESS NOTE DATE OF SERVICE: 06/03/2018 SUBJECTIVE: The patient's case was discussed with staff. She has no new complaint. OBJECTIVE: The patient is in good behavioral control with limited insight about her condition. She tolerates her medicines well. ASSESSMENT: No change in diagnoses. PLAN: Supportive and educational interventions were made. Long-term prognosis is guarded. TRANSINT:[id number] Voice Confirmation ID: [id number] DOCUMENT ID: [id number] СЕРГЕЙ GARCIA MD at 1053 CC: [id number] DICTATION DATE: 06/03/18 1331 SECURITY PROFESSIONALS: 06/03/18 1337 ADM IN [place] [id number]
--- NOTE | ~2018-05-11 | PN ---
PATIENT:SHANNAN JENKINS MEDICAL RECORD: [id number] LOCATION:MAXIMILIANO Harkins112 ADMISSION DATE: 05/11/18 PROGRESS NOTE DATE OF SERVICE: 05/15/2018 SUBJECTIVE: The patient's case was discussed with staff. She has no new complaint. OBJECTIVE: The patient denies intent to harm herself or others. She generally tolerates her medicines well. ASSESSMENT: No change in diagnoses. PLAN: Brief supportive and educational interventions were made. The patient's long-term prognosis is guarded. She is quite confused, but she has not been aggressive today. TRANSINT:[id number] Voice Confirmation ID: [id number] DOCUMENT ID: [id number] СЕРГЕЙ GARCIA MD at 1059 CC: [id number] DICTATION DATE: 05/15/18 1051 BAKERY SALES CLERK: 05/15/18 1102 ADM IN [place] [address] [place] [id number]
[~2018-05-11 22:00] MED LIST changes: +AMOXICILLIN875 MG
[2018-05-11 22:46] VITALS: BP 116/58
[2018-05-11 23:17] VITALS: BP 116/58
[2018-05-11] MEDS ORDERED: REMERON15 MG PO (23:57)
[2018-05-11] MEDS ORDERED: SEROQUEL25 MG PO (23:58)
[2018-05-12 07:38] LABS: BASOPHILS 0.2 % (0-2); EOSINOPHILS 2.8 % (0-7); HEMOGLOBIN 14.5 g/dL (12-16); IMMATURE GRANULOCYTES 0.2 % (0-5); LYMPHOCYTES 41.1 % (15-50); MCH 31.1 pg (26.0-34.0); MCHC 33.7 g/dL (31.0-37.0); MCV 92.3 fL (80.0-100.0); MONOCYTES 11.3 % (2-11); NEUTROPHILS 44.4 % (40-80); PLATELET COUNT 245 10x3/uL (130-400); RBC 4.66 10x6/uL (4.00-5.40); RDW 12.7 % (11.5-14.5); WBC 5.3 10x3/uL (4.8-10.8)
[2018-05-12 07:48] LABS: ALBUMIN 3.5 g/dL (3.4-5.0); ALKALINE PHOSPHATASE 69 U/L (46-116); ALT (SGPT) 14 U/L (10-68); CALC OSMOLALITY 278 mosm/kg (275-300); CALCIUM 8.9 mg/dL (8.5-10.1); CARBON DIOXIDE 31.6 mmol/L (21.0-32.0); CHLORIDE - SERUM 105 mmol/L (98-107); CHOL - HDL RATIO 3.3 ratio (2.3-4.1); CHOLESTEROL, TOTAL 229 mg/dL (0-200); CREATININE - SERUM 0.7 mg/dL (0.6-1.3); GLUCOSE 93 mg/dL (74-106); HDL CHOLESTEROL 70 mg/dL (32-96); LDL CHOLESTEROL 150 mg/dL (0-100); LDL-HDL RATIO 2.1 ratio (1.5-3.5); POTASSIUM - SERUM 4.1 mmol/L (3.5-5.1); PROTEIN - SERUM 7.1 g/dL (6.4-8.2); SODIUM 140 mmol/L (136-145); THYROID STIMULATING HORMONE 2.73 uIU/mL (0.36-3.74); TRIGLYCERIDE 48 mg/dL (30-200); UREA NITROGEN 13 mg/dL (7-18); eGFR NON AFRICAN AMERICAN 87 mL/min (90-120)
[2018-05-12 10:35] VITALS: BP 122/64
[2018-05-13 06:15] LABS: RAPID PLASMA REAGIN Non Reactive (Non Reactive)
[2018-05-13 08:21] LABS: VITAMIN D 25 HYDROXY 23.3 ng/mL (30.0-100.0)
[2018-05-13 09:18] LABS: FOLATE (FOLIC ACID) - SERUM >20.0 ng/mL (>3.0)
[2018-05-13 10:25] VITALS: BP 110/69
[2018-05-13 21:17] VITALS: BP 114/54
[2018-05-14 08:47] LABS: APPEARANCE CLEAR (CLEAR); BILIRUBIN NEGATIVE (NEGATIVE); COLOR YELLOW (YELLOW); GLUCOSE NEGATIVE (NEGATIVE); KETONE NEGATIVE (NEGATIVE); NITRITE POSITIVE (NEGATIVE); PROTEIN NEGATIVE (NEGATIVE); SPECIFIC GRAVITY 1.015 (1.005-1.020); UROBILINOGEN NORMAL (NORMAL)
[2018-05-14 08:48] LABS: BACTERIA MANY /hpf (NONE SEEN); EPITHELIAL CELLS 0-5 /hpf (0-5); RED CELLS - URINE 0-5 /hpf (0-5)
[2018-05-14 10:01] VITALS: BP 117/55
[2018-05-14 10:13] VITALS: BP 117/55
[2018-05-14 21:12] VITALS: BP 145/66
[2018-05-14 21:25] VITALS: BP 140/68
[2018-05-15 09:29] VITALS: BP 151/70
[2018-05-15 19:27] VITALS: BP 138/73
[2018-05-16 08:00] VITALS: BP 131/71
[2018-05-16 19:17] VITALS: BP 122/62
[2018-05-17 08:00] VITALS: BP 111/49
[2018-05-17 20:15] VITALS: BP 139/60
[2018-05-18 08:00] VITALS: BP 130/73
[2018-05-18 10:53] VITALS: BP 130/73
[2018-05-18 19:53] VITALS: BP 147/78
[2018-05-19 11:17] VITALS: BP 114/63
[2018-05-19 22:29] VITALS: BP 110/55
[2018-05-20 11:19] VITALS: BP 112/51
[2018-05-20 20:13] VITALS: BP 115/42
[2018-05-21 08:00] VITALS: BP 95/73
[2018-05-21 20:23] VITALS: BP 120/56
[2018-05-22 08:00] VITALS: BP 96/63
[2018-05-22 19:16] VITALS: BP 127/56
[2018-05-23 07:00] VITALS: BP 138/68
[2018-05-23 19:58] VITALS: BP 157/67
[2018-05-24 08:00] VITALS: BP 110/50
[2018-05-24 19:58] VITALS: BP 119/49
[2018-05-25 08:35] VITALS: BP 136/88
[2018-05-25 20:00] VITALS: BP 130/73
[2018-05-26 11:25] VITALS: BP 100/60
[2018-05-26 15:37] VITALS: Ht 167.6 cm; Wt 62.6 kg
[2018-05-26 19:37] VITALS: BP 149/61
[2018-05-27 09:58] VITALS: BP 148/64
[2018-05-28 00:31] VITALS: BP 133/59
[2018-05-28 08:24] VITALS: BP 110/61
[2018-05-28 20:00] VITALS: BP 145/57
[2018-05-29 20:00] VITALS: BP 159/59
[2018-05-30 08:00] VITALS: BP 111/52
[2018-05-30 19:47] VITALS: BP 132/70
[2018-05-31 08:00] VITALS: BP 104/71
[2018-05-31 19:37] VITALS: BP 140/64
[2018-06-01 07:37] VITALS: BP 124/60
[2018-06-01 09:16] VITALS: BP 124/60
[2018-06-01 20:25] VITALS: BP 109/48
[2018-06-02 09:14] VITALS: BP 126/60
[2018-06-02 19:41] VITALS: BP 148/61
[2018-06-03 08:58] VITALS: BP 123/73
[2018-06-03 20:00] VITALS: BP 148/46
[2018-06-04 08:00] VITALS: BP 114/62
[2018-06-04 19:22] VITALS: BP 70/38
[2018-06-05 08:00] VITALS: BP 140/82
[2018-06-05 19:25] VITALS: BP 121/64
[2018-06-06 12:11] VITALS: BP 108/60
[2018-06-07 08:00] VITALS: BP 142/80
[2018-06-07] MEDS ORDERED: Aricept PO (14:49)
[2018-06-07] MEDS ORDERED: LIPITOR10 MG PO (14:50)
[2018-06-07] MEDS ORDERED: MOBIC7.5 MG PO (14:50)
[2018-06-07] MEDS ORDERED: PEPCID PO (14:51)
[2018-06-07] MEDS ORDERED: GEODON20 MG PO (14:51)
[2018-06-07] MEDS ORDERED: KLONOPIN0.5 MG PO (14:51)
[2018-06-07] MEDS ORDERED: EFFEXOR50 MG PO (14:51)
[2018-06-07 20:46] VITALS: BP 134/58
[2018-06-08 10:28] VITALS: BP 112/59
== END 2018-06-08 13:00 | DRG 57 ==
LOC: D.PSYCH 22:00
PROVIDERS: Psychiatry & Neurology Psychiatry
DX: G30.1 Alzheimer's disease with late onset (principal); F02.81 Dementia in other diseases classified elsewhere, unspecified severity, with behavioral disturbance; N39.0 Urinary tract infection, site not specified; M19.90 Unspecified osteoarthritis, unspecified site; E78.5 Hyperlipidemia, unspecified; K21.9 Gastro-esophageal reflux disease without esophagitis; F41.9 Anxiety disorder, unspecified; F32.9 Major depressive disorder, single episode, unspecified; B96.1 Klebsiella pneumoniae [K. pneumoniae] as the cause of diseases classified elsewhere; R19.7 Diarrhea, unspecified

== ENCOUNTER 2018-06-08 22:15 | Inpatient (IN) | payer MEDICARE ==
[~2018-06-08] VITALS: Ht 167.6 cm; Wt 62.1 kg
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
--- NOTE | ~2018-06-08 | PN ---
PATIENT:SHANNAN JENKINS MEDICAL RECORD: [id number] LOCATION:MAXIMILIANO Harkins112 ADMISSION DATE: 06/08/18 PROGRESS NOTE DATE OF SERVICE: 06/16/2018 SUBJECTIVE: The patient's case was discussed with staff. She has no new complaint. OBJECTIVE: The patient is in good behavioral control with limited insight about her condition. She does tolerate her medicines well. She is severely impaired cognitively. ASSESSMENT: No change in diagnoses. PLAN: Supportive and educational interventions were made. Long-term prognosis is guarded. The patient is going to be discharged back to the senior care today. Followup will be with her primary care senior care physician. Again, there is no evidence of acute or direct dangerousness. She just needs close supervision. TRANSINT:[id number] Voice Confirmation ID: [id number] DOCUMENT ID: [id number] СЕРГЕЙ GARCIA MD at 1406 CC: [id number] DICTATION DATE: 06/16/18 1348 SPECIAL EDUCATION PARAPROFESSIONAL: 06/16/18 1357 DIS IN 06/16/18 [place] [id number] [place] [address]
--- NOTE | ~2018-06-08 | PN ---
PATIENT:SHANNAN JENKINS MEDICAL RECORD: [id number] LOCATION:BISHOPSwapnil Harkins112 ADMISSION DATE: 06/08/18 PROGRESS NOTE DATE OF SERVICE: 06/14/2018 SUBJECTIVE: The patient's case was discussed with staff. She has no new complaint. OBJECTIVE: The patient denies intent to harm herself or others. She tolerates her medicines well. ASSESSMENT: No change in diagnoses. PLAN: Current medicines and therapies have been reviewed. The patient does have a urinary tract infection. Once antibiotics have been initiated and had a little bit of an opportunity to work, I think it would be fine to transition her back to a half-way. TRANSINT:[id number] Voice Confirmation ID: [id number] DOCUMENT ID: [id number] СЕРЕГЙ GARCIA MD at 1419 CC: [id number] DICTATION DATE: 06/14/18 1429 PIANO PLAYER: 06/14/18 1538 ADM IN [place] [id number] [place] [address]
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
--- NOTE | ~2018-06-08 | PN ---
PATIENT:SHANNAN JENKINS MEDICAL RECORD: [id number] LOCATION:MAXIMILIANO Harkins112 ADMISSION DATE: 06/08/18 PROGRESS NOTE DATE OF SERVICE: 06/10/2018 SUBJECTIVE: The patient's case was discussed with staff. She has no new complaint. OBJECTIVE: The patient denies intent to harm herself or others. She generally tolerates her medicines well. She has pretty limited insight about her situation. She has not been aggressive today. ASSESSMENT: No change in diagnoses. PLAN: Supportive and educational interventions were made. The patient has been denied admission by the [facility] and the [facility] is still assessing her. She will be here through the weekend, but if this level of improvement is maintained, I would expect to reasonably transition her out of the hospital after the weekend. TRANSINT:[id number] Voice Confirmation ID: [id number] DOCUMENT ID: [id number] СЕРГЕЙ GARCIA MD at 1234 CC: [id number] DICTATION DATE: 06/10/18 1413 PUBLIC HEALTH STAFF NURSE: 06/10/18 1421 ADM IN [facility] [address] [place] [address]
--- NOTE | ~2018-06-08 | PN ---
PATIENT:SHANNAN JENKINS MEDICAL RECORD: [id number] LOCATION:BISHOPSwapnil Harkins112 ADMISSION DATE: 06/08/18 PROGRESS NOTE DATE OF SERVICE: 06/15/2018 SUBJECTIVE: The patient's case was discussed with staff. She has no new complaint. OBJECTIVE: The patient denies intent to harm herself or others. She generally tolerates her medicines well. She is quite confused. ASSESSMENT: No change in diagnoses. PLAN: Supportive and educational interventions were made. Long-term prognosis is guarded. TRANSINT:[id number] Voice Confirmation ID: [id number] DOCUMENT ID: [id number] СЕРГЕЙ GARCIA MD at 1340 CC: [id number] DICTATION DATE: 06/15/18 1427 CONSTRUCTION JOB COST ESTIMATOR: 06/15/18 1529 ADM IN [place] [address] [place] [address]
--- NOTE | ~2018-06-08 | PN ---
PATIENT:SHANNAN JENKINS MEDICAL RECORD: [id number] LOCATION:MAXIMILIANO Harkins112 ADMISSION DATE: 06/08/18 PROGRESS NOTE DATE OF SERVICE: 06/10/2018 SUBJECTIVE: The patient's case was discussed with staff. She has no new complaint. OBJECTIVE: The patient denies intent to harm herself or others. She generally tolerates her medicines well. Eye contact is fair. ASSESSMENT: No change in diagnoses. PLAN: Supportive and educational interventions were made. The patient is tolerating her current medications well. TRANSINT:[id number] Voice Confirmation ID: [id number] DOCUMENT ID: [id number] СЕРГЕЙ GARCIA MD at 1226 CC: [id number] DICTATION DATE: 06/11/18 1236 ST[address] R[address]TE MAIL DRIVER: 06/11/18 1242 ADM IN [address] [address]
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
--- NOTE | ~2018-06-08 | PN ---
PATIENT:SHANNAN JENKINS MEDICAL RECORD: [id number] LOCATION:BISHOPSwapnil Harkins112 ADMISSION DATE: 06/08/18 PROGRESS NOTE DATE OF SERVICE: 06/13/2018 SUBJECTIVE: The patient's case was discussed with staff. She has no new complaint. OBJECTIVE: The patient has been in good behavioral control and has not been aggressive today. ASSESSMENT: No change in diagnoses. PLAN: Supportive and educational interventions were made. The patient is in need of acute residential care at a group home. Several have declined her because of her recent behaviors. Once arrangements have been made for group home placement, I do intend to transfer her. TRANSINT:[id number] Voice Confirmation ID: [id number] DOCUMENT ID: [id number] СЕРГЕЙ GARCIA MD at 1416 CC: [id number] DICTATION DATE: 06/13/18 1539 STUDIO POTTER: 06/13/18 1623 ADM IN [place] [id number] [place] [address]
[~2018-06-08 22:15] MED LIST changes: +Aricept PO; +EFFEXOR50 MG PO; +GEODON20 MG PO; +KLONOPIN0.5 MG PO; +PEPCID PO; +REMERON15 MG PO
[2018-06-09 01:30] VITALS: BP 132/64; BMI 22.2
[2018-06-09 07:06] LABS: BASOPHILS 0.2 % (0-2); EOSINOPHILS 3.9 % (0-7); HEMATOCRIT 37.7 % (36.0-48.0); HEMOGLOBIN 12.4 g/dL (12-16); MCH 30.5 pg (26.0-34.0); MCHC 32.9 g/dL (31.0-37.0); MCV 92.9 fL (80.0-100.0); MEAN PLATELET VOLUME 9.7 fL (7.4-10.4); MONOCYTES 8.1 % (2-11); NEUTROPHILS 46.8 % (40-80); PLATELET COUNT 240 10x3/uL (130-400); RBC 4.06 10x6/uL (4.00-5.40); RDW 12.7 % (11.5-14.5); WBC 4.3 10x3/uL (4.8-10.8)
[2018-06-09 07:36] LABS: ALBUMIN 3.3 g/dL (3.4-5.0); ALKALINE PHOSPHATASE 60 U/L (46-116); ALT (SGPT) 14 U/L (10-68); CALC OSMOLALITY 281 mosm/kg (275-300); CARBON DIOXIDE 30.7 mmol/L (21.0-32.0); CHLORIDE - SERUM 105 mmol/L (98-107); CHOL - HDL RATIO 2.3 ratio (2.3-4.1); CHOLESTEROL, TOTAL 149 mg/dL (0-200); CREATININE - SERUM 0.7 mg/dL (0.6-1.3); GLUCOSE 101 mg/dL (74-106); HDL CHOLESTEROL 64 mg/dL (32-96); LDL CHOLESTEROL 80 mg/dL (0-100); LDL-HDL RATIO 1.3 ratio (1.5-3.5); POTASSIUM - SERUM 3.9 mmol/L (3.5-5.1); PROTEIN - SERUM 6.6 g/dL (6.4-8.2); SODIUM 141 mmol/L (136-145); THYROID STIMULATING HORMONE 1.96 uIU/mL (0.36-3.74); TRIGLYCERIDE 29 mg/dL (30-200); UREA NITROGEN 16 mg/dL (7-18); eGFR NON AFRICAN AMERICAN 87 mL/min (90-120)
[2018-06-09 10:07] VITALS: BP 120/83
[2018-06-09 10:31] VITALS: BMI 22.1
[2018-06-09 13:28] VITALS: Ht 167.6 cm; Wt 62.1 kg
[2018-06-09 19:38] VITALS: BP 121/77
[2018-06-10 07:29] LABS: VITAMIN D 25 HYDROXY 23.5 ng/mL (30.0-100.0)
[2018-06-10 07:35] LABS: APPEARANCE TURBID (CLEAR); BILIRUBIN NEGATIVE (NEGATIVE); COLOR YELLOW (YELLOW); GLUCOSE NEGATIVE (NEGATIVE); KETONE NEGATIVE (NEGATIVE); NITRITE POSITIVE (NEGATIVE); PROTEIN TRACE mg/dL (NEGATIVE); SPECIFIC GRAVITY 1.015 (1.005-1.020); UROBILINOGEN NORMAL (NORMAL)
[2018-06-10 07:37] LABS: AMORPHOUS SEDIMENT <1+ /lpf (NONE SEEN); BACTERIA MANY /hpf (NONE SEEN); EPITHELIAL CELLS >50 /hpf (0-5); MUCUS <1+ /lpf (NONE SEEN); WHITE CELLS - URINE >50 /hpf (0-5)
[2018-06-10 08:19] LABS: RAPID PLASMA REAGIN Non Reactive (Non Reactive)
[2018-06-10 09:18] LABS: FOLATE (FOLIC ACID) - SERUM >20.0 ng/mL (>3.0)
[2018-06-10 10:40] VITALS: BP 148/50
[2018-06-10 20:00] VITALS: BP 111/48
[2018-06-11 10:15] VITALS: BP 112/68
[2018-06-11 20:00] VITALS: BP 130/61
[2018-06-11 23:33] VITALS: BP 130/61
[2018-06-12 11:01] VITALS: BP 124/63
[2018-06-12 19:47] VITALS: BP 146/57
[2018-06-13 07:00] VITALS: BP 135/70
[2018-06-13 16:56] LABS: BASOPHILS 0.3 % (0-2); EOSINOPHILS 2.3 % (0-7); HEMATOCRIT 38.8 % (36.0-48.0); HEMOGLOBIN 12.7 g/dL (12-16); IMMATURE GRANULOCYTES 0.1 % (0-5); LYMPHOCYTES 22.3 % (15-50); MCH 30.6 pg (26.0-34.0); MCHC 32.7 g/dL (31.0-37.0); MCV 93.5 fL (80.0-100.0); MEAN PLATELET VOLUME 11.2 fL (7.4-10.4); MONOCYTES 9.7 % (2-11); NEUTROPHILS 65.3 % (40-80); PLATELET COUNT 204 10x3/uL (130-400); RBC 4.15 10x6/uL (4.00-5.40); RDW 13.1 % (11.5-14.5); WBC 7.7 10x3/uL (4.8-10.8)
[2018-06-14 10:00] VITALS: BP 127/91
[2018-06-14 19:46] VITALS: BP 121/61
[2018-06-15 08:00] VITALS: BP 103/61
[2018-06-15 20:24] VITALS: BP 115/48
[2018-06-16] MEDS ORDERED: FLORAJEN3 CAPS460 MG PO (09:18)
[2018-06-16] MEDS ORDERED: VITAMIN D5000 UNIT PO (09:19)
[2018-06-16] MEDS ORDERED: VITAMIN C250 MG PO (09:19)
== END 2018-06-16 15:40 | DRG 56 ==
LOC: D.PSYCH 22:15
PROVIDERS: Family Medicine; Psychiatry & Neurology Psychiatry
DX: G30.1 Alzheimer's disease with late onset (principal); J18.9 Pneumonia, unspecified organism; F02.81 Dementia in other diseases classified elsewhere, unspecified severity, with behavioral disturbance; N39.0 Urinary tract infection, site not specified; J98.11 Atelectasis; M19.90 Unspecified osteoarthritis, unspecified site; E78.5 Hyperlipidemia, unspecified; K21.9 Gastro-esophageal reflux disease without esophagitis; B96.1 Klebsiella pneumoniae [K. pneumoniae] as the cause of diseases classified elsewhere; F41.8 Other specified anxiety disorders; E55.9 Vitamin D deficiency, unspecified